=== PATIENT | male | born 1930 | race Caucasian/White ===

== ENCOUNTER 2016-06-02 12:29 | Inpatient (IN) | payer MEDICARE, OTHER ==
[2016-06-02 13:17] LABS: Hematocrit 43 % (42-52); Hemoglobin 14.1 g/dl (14.0-18.0); Mean Corpuscular HGB Conc 33 g/dl (31-36); Mean Corpuscular Hemoglobin 29 pg (27-31); Mean Corpuscular Volume 89 fL (80-94); Mean Platelet Volume 9 um3 (7.4-10.4); Red Blood Count 4.82 10^6/ul (4.0-5.4); Red Cell Distribution Width 15 % (10.5-15); White Blood Count 17.1 10^3/ul (3.5-10.8)
[2016-06-02 13:31] LABS: EGFR African American 114.3 (>60); EGFR Non-African American 88.9 (>60); Potassium 4.7 mmol/L (3.5-5.0)
--- NOTE | 2016-06-02 13:38 | RAD ---
Indication: Cough, shortness of breath, low O2 saturation. Cardiac disease. Chronic obstructive pulmonary disease. Comparison: August 23, 2015 Technique: Upright AP 1305 hours Report: Unchanged moderate elevation of the RIGHT hemidiaphragm. Lung volumes are decreased compared with the prior exam with associated bibasilar atelectasis. Given volume loss inflammatory infiltrates at the lung bases are less likely. Median sternotomy wires and mediastinal vascular clips. Mild cardiomegaly. Prominent mildly ill-defined central pulmonary vasculature likely reflecting low lung volumes. Grossly clear pleural spaces. Negative for pneumothorax. IMPRESSION: Low lung volumes for this patient compared with the prior exam with associated basilar atelectasis. No compelling evidence for pneumonia or pulmonary edema.
--- NOTE | 2016-06-02 13:49 | ED ---
Shortness of Breath - HPI Summary HPI Summary: Patient presents for delayed evaluation of fever, cough, shortness of breath. Progressively worsening for the last 2 weeks. He trialed some expectorant and cough supppressant without relief. Finally had fever and chills the last 2 days , with exertional dyspnea. Denies recent chest pain or hospitalization. Denies any specific sick contacts. - History of Current Complaint Chief Complaint: EDUpperRespComplaint Time Seen by Provider: 06/02/16 12:53 Hx Obtained From: Patient, Family/Property Preservation Specialist - , Other: - Sales Account Specialist Onset/Duration: Gradual Onset Associated Signs & Symptoms: Cough (Productive) - Allergy/Home Medications Allergies/Adverse Reactions: Allergies Allergy/AdvReac Type Severity Reaction Status Date / Time Protamine Allergy Severe Anaphylatic Verified 03/19/15 07:12 [From Protamine Sulfate Shock Lyophylized] PMH/Surg Hx/FS Hx/Imm Hx Previously Healthy: No Endocrine/Hematology History: Reports: Hx Diabetes - insulin, Other Endocrine/ Hematological Disorders - Temporal arteritis Cardiovascular History: Reports: Hx Coronary Artery Disease - CABGX3 1996, Hx Hypertension - WELL CONTROLLED, Other Cardiovascular Problems/Disorders - CARDIAC ARREST DURING CAGB, REACTION TO PROTAMINE Respiratory History: Reports: Hx Asthma, Hx Chronic Obstructive Pulmonary Disease (COPD), Hx Sleep Apnea, Other Respiratory Problems/Disorders - OCC WHEEZING History: Reports: Other Problems/Disorders - BPH Musculoskeletal History: Reports: Hx Gout, Other Musculoskeletal History - lumbar and cervical stenosis Sensory History: Reports: Hx Contacts or Glasses, Hx Hearing Aid Opthamlomology History: Reports: Hx Contacts or Glasses Neurological History: Reports: Other Neuro Impairments/Disorders - HX RIGHT TEMPORAL ARTERITIS - Surgical History Surgery Procedure, Year, and Place: 1996 CABGX3. 1998 C5-C7 LAMINECTOMY. BILAT CATARACT 2013 [facility] [place] [facility] SURGERY 1956. 1969 Sebaceous cyst removal on head Hx Anesthesia Reactions: No - CARDIAC ARREST DURING CABG, REACTION TO PROTAMINE Infectious Disease History: No Infectious Disease History: Denies: Hx Clostridium Difficile, Hx Hepatitis, Hx Human Immunodeficiency Virus (HIV), Hx of Known/Suspected MRSA, Hx Shingles, Hx Tuberculosis, Traveled Outside the [place] in Last 30 Days - Social History Alcohol Use: Daily Alcohol Amount: 2 glasses/wine at dinner Substance Use Type: Reports: None Hx Tobacco Use: Yes Smoking Status (MU): Former Smoker Length of Time of Smoking/Using Tobacco: 25 YRS Have You Smoked in the Last Year: No Review of Systems Positive: Fever, Chills Negative: Chest Pain Positive: Shortness Of Breath, Cough All Other Systems Reviewed And Are Negative: Yes Physical Exam Triage Information Reviewed: Yes Vital Signs On Initial Exam: Initial Vitals Temp Pulse Resp BP Pulse Ox 100.3 F 47 16 129/37 93 06/02/16 12:31 06/02/16 12:31 06/02/16 12:31 06/02/16 12:31 06/02/16 12:31 Vital Signs Reviewed: Yes Appearance: Positive: No Pain Distress, Well-Nourished, Ill-Appearing Skin: Positive: Warm, Skin Color Reflects Adequate Perfusion, Dry Head/Face: Positive: Normal Head/Face Inspection Eyes: Positive: Normal, EOMI, COLIN ENT: Positive: Nasal congestion Neck: Positive: Supple, Nontender Respiratory/Lung Sounds: Positive: Decreased Breath Sounds - Bibasilar decreased breath sounds. Tachypneic Cardiovascular: Positive: RRR, Pulses are Symmetrical in both Upper and Lower Extremities, Bradycardia Abdomen Description: Positive: Nontender, No Organomegaly, Soft Musculoskeletal: Positive: Normal, Strength/ROM Intact Neurological: Positive: Normal, Sensory/Motor Intact, Alert, Oriented to Person Place, Time, CN Intact II-III, Normal Gait - [place] Coma Scale Coma Scale Total: 15 Diagnostics - Vital Signs Vital Signs Temp Pulse Resp BP Pulse Ox 06/02/16 12:31 100.3 F 47 16 129/37 93 - Laboratory Lab Results: Lab Results 06/02/16 06/02/16 06/02/16 Range/Units 13:00 13:00 13:00 WBC 17.1 H (3.5-10.8) 10^3/ul RBC 4.82 (4.0-5.4) 10^6/ul Hgb 14.1 (14.0-18.0) g/dl Hct 43 (42-52) % MCV 89 (80-94) fL MCH 29 (27-31) pg MCHC 33 (31-36) g/dl RDW 15 (10.5-15) % Plt Count 140 L (150-450) 10^3/ul MPV 9 (7.4-10.4) um3 Neut % (Auto) 88.5 H (38-83) % Lymph % (Auto) 3.3 L (25-47) % Caroline % (Auto) 7.9 (1-9) % Eos % (Auto) 0.1 (0-6) % Baso % (Auto) 0.2 (0-2) % Absolute Neuts (auto) 15.2 H (1.5-7.7) 10^3/ul Absolute Lymphs (auto) 0.6 L (1.0-4.8) 10^3/ul Absolute Monos (auto) 1.4 H (0-0.8) 10^3/ul Absolute Eos (auto) 0 (0-0.6) 10^3/ul Absolute Basos (auto) 0 (0-0.2) 10^3/ul Absolute Nucleated RBC 0 10^3/ul Nucleated RBC % 0 Sodium 130 L (133-145) mmol/L Potassium 4.7 (3.5-5.0) mmol/L Chloride 97 L (101-111) mmol/L Carbon Dioxide 26 (22-32) mmol/L Anion Gap 7 (2-11) mmol/L BUN 18 (6-24) mg/dL Creatinine 0.82 (0.67-1.17) mg/dL Est GFR ( Amer) 114.3 (>60) Est GFR (Non-Af Amer) 88.9 (>60) BUN/Creatinine Ratio 22.0 H (8-20) Glucose 494 H (70-100) mg/dL Lactic Acid 3.1 H* (0.5-2.0) mmol/L Calcium 9.0 (8.6-10.3) mg/dL B-Natriuretic Peptide ( - 100) pg/mL 06/02/16 Range/Units 13:00 WBC (3.5-10.8) 10^3/ul RBC (4.0-5.4) 10^6/ul Hgb (14.0-18.0) g/dl Hct (42-52) % MCV (80-94) fL MCH (27-31) pg MCHC (31-36) g/dl RDW (10.5-15) % Plt Count (150-450) 10^3/ul MPV (7.4-10.4) um3 Neut % (Auto) (38-83) % Lymph % (Auto) (25-47) % Caroline % (Auto) (1-9) % Eos % (Auto) (0-6) % Baso % (Auto) (0-2) % Absolute Neuts (auto) (1.5-7.7) 10^3/ul Absolute Lymphs (auto) (1.0-4.8) 10^3/ul Absolute Monos (auto) (0-0.8) 10^3/ul Absolute Eos (auto) (0-0.6) 10^3/ul Absolute Basos (auto) (0-0.2) 10^3/ul Absolute Nucleated RBC 10^3/ul Nucleated RBC % Sodium (133-145) mmol/L Potassium (3.5-5.0) mmol/L Chloride (101-111) mmol/L Carbon Dioxide (22-32) mmol/L Anion Gap (2-11) mmol/L BUN (6-24) mg/dL Creatinine (0.67-1.17) mg/dL Est GFR ( Amer) (>60) Est GFR (Non-Af Amer) (>60) BUN/Creatinine Ratio (8-20) Glucose (70-100) mg/dL Lactic Acid (0.5-2.0) mmol/L Calcium (8.6-10.3) mg/dL B-Natriuretic Peptide 138 H ( - 100) pg/mL Result Diagrams: 06/02/16 13:00 06/02/16 13:00 Lab Statement: Any lab studies that have been ordered have been reviewed, and results considered in the medical decision making process. - EKG No standard instances EKG Rhythm: Sinus Bradycardia ST Segment: Normal Ectopy: None EKG Comparison: Other - Sinus Bradycardia, LBBB Course/Dx - Diagnoses Differential Diagnosis/HQI/PQRI: Positive: CHF, COPD Exacerbation, Pneumonia, Other - Primary concern for post viral bacterial pneumonia with bibasilar diminished breath sounds, systemic symptoms, leukocytosis. Tachypneic and ill appearing, but non toxic. CAP treatment and admission. Provider Diagnoses: Pneumonia, Hypoxia - Physician Notifications Discussed Care of Patient With: 13:35 Hospitalist paged for admission. Instructed by Provider To: Admit As Inpatient - Critical Care Time Critical Care Time: 30-74 min Discharge - Discharge Plan Condition: Fair Disposition: ADMITTED TO [facility] Referrals: Luis E Arellano MD [Primary Care Provider] -
[2016-06-02 14:29] LABS: Troponin I 0.01 ng/mL (<0.04)
--- NOTE | 2016-06-02 14:30 | RAD ---
INDICATION: Upper respiratory symptoms x2 weeks with blood in sputum and hypoxia. COMPARISON: CT of the chest dated March 16, 2009 TECHNIQUE: Axial source images of the chest were acquired without intravenous contrast from just above the lung apices to the base of the diaphragm. Coronal and sagittal reconstructed images were acquired. FINDINGS: Postoperative findings include sternotomy wires and likely coronary artery stents. There are densities with air bronchograms in the bilateral deep tendons lower lobes. The upper lobes are grossly clear with the exception of mild centrilobular emphysematous changes. The heart is normal in size. There is no evidence of pericardial effusion. There is no evidence of aortic aneurysm or dissection. Incidentally noted, the blood in the lumen of the aorta is hypoattenuating relative to the wall of the aorta (for example image 27 of 67). There is no readily apparent mediastinal, hilar, or axillary lymphadenopathy. Degenerative changes of the thoracic spine include loss of intervertebral disc height, multilevel disc vacuum disc phenomenon and marginal osteophyte formation. Limited views of the upper abdomen show no acute abnormalities. IMPRESSION: 1. CT findings are most compatible with bibasilar pneumonia. The location of the pneumonia, dependent and posterior bilaterally, is consistent with aspiration pneumonia. 2. Additional chronic, degenerative and iatrogenic findings as described in the body of the report.
[2016-06-02] MEDS ORDERED: Dextrose 50% Syringe 50 ML* 25 GM/50 ML SYRINGE IV PUSH PRN (15:16)
[2016-06-02] MEDS ORDERED: Benzonatate CAP* 100 MG PO PRN (15:18)
[2016-06-02] MEDS ORDERED: Albuterol/Ipratropium NEB.SOL* Albuterol 2.5 MG/Ipratropium 0.5 MG 3 ML INH PRN (15:18)
[2016-06-02] MEDS: cefTRIAXone VIAL(*) 1,000 MG in NS 0.9% 50 ML* 50 ML IVPB SCH (16:38)
[2016-06-02] MEDS: NS 0.9% 1000 ML* 1,000 ML IV SCH (16:39)
[2016-06-02] MEDS: Insulin LISPRO* 1 UNITS UNIT SUBCUT SCH (17:17)
[2016-06-02] MEDS: Azithromycin IV(*) 500 MG in NS 0.9% 250 ML* 250 ML IVPB SCH (17:21)
[2016-06-02] MEDS: predniSONE TAB* 20 MG PO SCH (20:14)
--- NOTE | 2016-06-02 21:14 | HP ---
HOSPITAL MEDICINE HISTORY AND PHYSICAL: DATE OF ADMISSION: 06/02/16 PRIMARY CARE PHYSICIAN: Dr. Arellano. ATTENDING PHYSICIAN: Paty Reilly MD* (dictation provided by Elda Stacy NP) . PRIMARY COMPLAINT: Cough. HISTORY OF PRESENT ILLNESS: Mr. Mohan is an 85-year-old male with a past medical history of diabetes, hypertension, COPD, coronary artery disease, and obstructive sleep apnea who presents today to the hospital with concern for cough. Mr. Mohan states that he has been feeling unwell for approximately 2 weeks. Early in the course of the illness, he had a runny nose and cough. He denies any fever. He was using oral decongestants and cough suppressants with some decent effect. Last night, he was having some difficulty lying flat to sleep. He felt more short of breath. He noticed blood in his sputum. He was feeling "loggy." He awoke at 5 a.m. and was coughing so much that he could not get comfortable. He could not lie down due to the coughing. He felt significant chills. He went on to Dr. Lai's office and she suspected that perhaps he had pneumonia and therefore, had him come in to the emergency room for evaluation. Mr. Mohan denies other complaint including chest pain. He has been eating and drinking normally prior to getting this ill last night. His bowels have been moving regularly. He has had no problems with urination. In the emergency room, Mr. Mohan had a mild fever to 100.3. His white blood cell count is elevated to 17.1. His lactic acid is elevated to 3.1. Flu swab is negative. His chest x-ray did not appear to show pneumonia, but he went on for a CT of the chest, which showed the following: "CT findings are most compatible with bibasilar pneumonia. The location of the pneumonia dependent posterior bilaterally is consistent with aspiration pneumonia." Based on Mr. Mohan's presentation with pneumonia, Hospital Medicine was called regarding admission. PAST MEDICAL HISTORY: 1. Type 2 diabetes, insulin dependent. 2. History of TURP. 3. History of hypertension. 4. COPD. 5. Coronary artery disease with CABG. 6. History of spinal stenosis with cervical surgery, 1998. 7. Obstructive sleep apnea, on BiPAP. MEDICATIONS: 1. Atenolol 50 mg p.o. q.p.m. 2. Glipizide 5 mg in the a.m. and 10 mg in the p.m. 3. Hydrochlorothiazide 12.5 mg p.o. q.a.m. 4. Lantus insulin 20 units subcutaneously q.a.m. 5. Metformin 1000 mg p.o. b.i.d. 6. Pravastatin 20 mg p.o. q.p.m. 7. Symbicort 80/4.5 two puffs inhaled b.i.d. 8. Aspirin 81 mg p.o. daily. 9. Amlodipine 10 mg p.o. q.p.m. ALLERGIES: PROTAMINE SULFATE. FAMILY HISTORY: No history of early heart disease in the family. SOCIAL HISTORY: The patient quit smoking in 1971. He drinks 2 glasses of wine occasionally at night. He denies any drug use. He states his is the healthcare proxy. REVIEW OF SYSTEMS: A 14-point review of systems was completed with Mr. Mohan and all those note mentioned above are negative. PHYSICAL EXAMINATION GENERAL: Mr. Mohan is sitting up in the bed. He is in no acute distress. He is calm and cooperative to my examination. VITAL SIGNS: Temperature 98.3, pulse rate 46, respiratory rate 22, O2 saturation 94% on 2 L, blood pressure 151/42. LUNGS: With wheezing bilaterally, but no rhonchi appreciated. HEART: S1, S2. No murmur, rub, or gallop and regular. ABDOMEN: Soft, nontender with bowel sounds positive x4. EXTREMITIES: No cyanosis or edema. NEUROLOGIC: He is alert. He is oriented x3. He moves all extremities equally. There is no facial asymmetry or focal weakness. Extraocular movements are intact. SKIN: Intact. LABORATORY DATA AND DIAGNOSTIC STUDIES: WBC 17.1, hemoglobin 14.1, hematocrit 43, platelet count 140. Sodium 130, potassium 4.7, chloride 97, serum bicarbonate 26, BUN 18, creatinine 0.82, glucose 494, lactic acid 3.1, BNP 138. Flu swab is negative. CT chest is as read above. Chest x-ray originally was read as follows: Low lung volumes for this patient compared to the prior exam with associated bibasilar atelectasis. EKG: Sinus bradycardia with what appears to be a new left bundle branch block with last comparison EKG from 2008. ASSESSMENT AND PLAN: Mr. Mohan is an 85-year-old male with a past medical history of insulin-dependent diabetes, chronic obstructive pulmonary disease, hypertension, coronary artery disease, obstructive sleep apnea who presents today to the hospital with concern for cough and diagnosis of pneumonia. Our plans are for inpatient admission as I expect the length of stay to be greater than 2 days for the followin. Community-acquired pneumonia: Plan to treat the patient with ceftriaxone and azithromycin. I have added on a urine strep and Legionella antigens. His flu swab is negative. His blood cultures have been drawn. Plan to recheck white blood cell count in the morning. His lactic acid is 3.1, that will be rechecked now. 2. Sinus bradycardia with left bundle branch block: Mr. Mohan states that his heart rate normally runs about 60, I noted today in the emergency room, his heart rate is running about 46 to 50. He also had what appears to be a new left bundle branch block. This has been discussed with Dr. Arellano who is his primary care physician and plans are for the office to look for a more recent EKG to determine if this is actually new. Mr. Mohan denies any chest pain. I do not think this represents an acute coronary syndrome. I will recheck a troponin, the first one was 0.01. In addition, Mr. Mohan is on atenolol at home and that will be held. 3. Hypertension: Plan to hold atenolol and hydrochlorothiazide. The patient will continue on his home amlodipine while he is in increased risk for complications while being treated for pneumonia. 4. Obstructive sleep apnea: Continue home BiPAP. The will bring it from home. 5. Chronic obstructive pulmonary disease: The patient is wheezing. Plan to add prednisone at 40 mg starting now. I think that could continue along with dual nebulizer treatments via quick taper. 6. DVT prophylaxis with heparin subcu. 7. Disposition to telemetry floor based on new left bundle branch block and bradycardia. 8. Code status is full code. TIME SPENT: Approximately 60 minutes were spent on the H and P of this patient , more than half time spent with the patient at the bedside reviewing the events leading up to this hospitalization, performing the physical examination, and reviewing my plan of care. ELDA STACY NP CC: Dr. Arellano * [id number]/[facility] #: [id number] JOYCE
[2016-06-02] MEDS: Heparin VIAL(*) 5000 UNITS/ML VIAL (FIVE THOUSAND) SUBCUT SCH (21:33)
[2016-06-03] MEDS: NS 0.9% 1000 ML* 1,000 ML IV SCH (02:54)
[2016-06-03 05:05] LABS: Hematocrit 39 % (42-52); Hemoglobin 12.8 g/dl (14.0-18.0); Mean Corpuscular HGB Conc 33 g/dl (31-36); Mean Corpuscular Hemoglobin 29 pg (27-31); Mean Corpuscular Volume 89 fL (80-94); Mean Platelet Volume 9 um3 (7.4-10.4); Red Cell Distribution Width 15 % (10.5-15); White Blood Count 13.8 10^3/ul (3.5-10.8)
[2016-06-03 05:09] LABS: Add Diff/Slide Review? Slide Review Added; Comments Flag Yes
[2016-06-03 05:16] LABS: Calcium 8.9 mg/dL (8.6-10.3); EGFR African American 137.2 (>60); EGFR Non-African American 106.7 (>60); Potassium 4.4 mmol/L (3.5-5.0)
[2016-06-03] MEDS: Heparin VIAL(*) 5000 UNITS/ML VIAL (FIVE THOUSAND) SUBCUT SCH ×3 (05:49→22:19)
[2016-06-03] MEDS: GuaiFENesin DM* 5 ML UDC PO PRN ×3 (05:53→22:20)
[2016-06-03] MEDS ORDERED: Dextrose 50% Syringe 50 ML* 25 GM/50 ML SYRINGE IV PUSH PRN (08:28)
--- NOTE | 2016-06-03 08:39 | PN ---
Subjective - Subjective Reason for Note: Progress Note History: I reviewed Vladimir Ellis's presentation with the patient and also from the H and P provided by Elda Stacy NP. He has had a cough for 2 weeks preceded by a sore throat. He thought it was improving, but over the weekend it became productive. Yesterday he developed shortness of breath - marked orthopnea. He also had 1 episode of hemoptysis - bright red blood He has had no chest pain, palpitations, edema. Today he has a good appetite. He is hyperglycemic. He has no nausea/vomiting/ diarrhea. He continues to have a productive cough bringing up yellow sputum. He is in no pain Active Problems: Active Problems Basal pneumonia of both lungs (Acute) J18.9 Bradycardia (Acute) R00.1 COPD (chronic obstructive pulmonary disease) (Acute) J44.9 Expiratory wheezing (Acute) R06.2 Type 2 diabetes mellitus, uncontrolled (Acute) E11.65 Coronary atherosclerosis (Chronic) I25.10 Essential hypertension (Chronic) I10 Hx of cervical spine surgery (Chronic) Z98.890 Hypercholesterolemia (Chronic) E78.00 Left bundle branch block (LBBB) (Chronic) I44.7 S/P CABG (coronary artery bypass graft) (Chronic) Z95.1 Sleep apnea (Chronic) G47.30 Spinal stenosis in cervical region (Chronic) M48.02 Status post transurethral resection of prostate (Chronic 04/22/15) Z90.79 Current Medications: Current Medications Albuterol/Ipratropium (Duoneb Neb.Kerry*) 1 neb INH Q4H PRN PRN Reason: SOB/WHEEZING Last Admin: 06/02/16 21:07 Dose: 1 neb Amlodipine Besylate (Norvasc Tab*) 10 mg PO QPM JOSE LUIS Aspirin (Aspirin Ec Low Dose*) 81 mg PO DAILY JOSE LUIS Benzonatate (Tessalon Cap*) 100 mg PO BID PRN PRN Reason: COUGH Last Admin: 06/02/16 20:14 Dose: 100 mg Dextrose (D50w Syringe 50 Ml*) 12.5 gm IV PUSH .FOR FS < 60 - SS PRN PRN Reason: FS < 60 Dextrose (D50w Syringe 50 Ml*) 12.5 gm IV PUSH .FOR FS < 60 - SS PRN PRN Reason: FS < 60 Guaifenesin/Dextromethorphan (Robitussin Dm*) 10 ml PO Q6H PRN PRN Reason: COUGH Last Admin: 06/03/16 05:53 Dose: 10 ml Heparin Sodium (Porcine) (Heparin Vial(*)) 5,000 units SUBCUT Q8HR [facility] Last Admin: 06/03/16 05:49 Dose: 5,000 units Ceftriaxone Sodium 1,000 mg/ (Sodium Chloride) 50 mls @ 200 mls/hr IVPB Q24H [facility] Last Admin: 06/02/16 16:38 Dose: 200 mls/hr Azithromycin 500 mg/ Sodium (Chloride) 250 mls @ 250 mls/hr IVPB Q24H [facility] Last Admin: 06/02/16 17:21 Dose: 250 mls/hr Insulin Glargine (Lantus(*)) 20 units SUBCUT Q12H [facility] Insulin Human Lispro (Humalog*) 0 units SUBCUT AC [facility] PRN Reason: Protocol Last Admin: 06/02/16 17:17 Dose: 8 units Insulin Human Lispro (Humalog*) 0 units SUBCUT ACHS [facility] PRN Reason: Protocol Prednisone (Deltasone Tab*) 40 mg PO DAILY [facility] Last Admin: 06/02/16 20:14 Dose: 40 mg - Review of Systems Constitutional Symptoms: No: Fever, Night Sweats Dermatology: Rash: No Pulmonary: Positive: Cough, Sputum, Wheezing, Shortness of Breath, COPD, Other - sleep apnea with BIPAP Negative: Hemoptysis, Respiratory Distress Cardiology: Positive: Shortness of Breath Negative: Chest Pain, Palpitations, Swelling of Ankles Gastroenterology: Negative: Abdominal Pain, Nausea, Vomiting, Change in Bowel Habits Home Medications: Home Medications Medication Instructions Recorded Confirmed Type Atenolol 50 mg PO QPM 07/16/12 06/02/16 History Glipizide 5 mg PO QAM 07/16/12 06/02/16 History Hydrochlorothiazide TAB* 12.5 mg PO QAM 07/16/12 06/02/16 History Insulin Glargine [Lantus] 20 units SUBCUT QAM 07/16/12 06/02/16 History Metformin HCl 1,000 mg PO BID 07/16/12 06/02/16 History amLODIPine TAB* [Norvasc TAB*] 10 mg PO QPM 07/16/12 06/02/16 History Glipizide 10 mg PO QPM 03/12/15 06/02/16 History Pravastatin Sodium [Pravachol] 20 mg PO QPM 03/12/15 06/02/16 History Symbicort 80/4.5 (NF) 2 inh INH BID 03/19/15 06/02/16 History Aspirin EC Low Dose* [Ecotrin EC 81 mg PO DAILY 06/02/16 06/02/16 History Low Dose*] Allergies: Allergies Allergy/AdvReac Type Severity Reaction Status Date / Time Protamine Allergy Severe Anaphylatic Verified 03/19/15 07:12 [From Protamine Sulfate Shock Lyophylized] Objective - Vital Signs Vital Signs: Vital Signs 06/02/16 06/02/16 06/02/16 17:25 19:39 19:46 Temperature 99.7 F Pulse Rate 48 Respiratory 22 18 18 Rate Blood Pressure 134/35 (mmHg) O2 Sat by Pulse 95 Oximetry 06/02/16 06/02/16 06/03/16 21:08 23:20 01:20 Temperature 98.4 F Pulse Rate 44 41 Respiratory 20 16 Rate Blood Pressure 120/36 (mmHg) O2 Sat by Pulse 93 94 93 Oximetry 06/03/16 03:11 Temperature 98.1 F Pulse Rate 39 Respiratory 20 Rate Blood Pressure 122/45 (mmHg) O2 Sat by Pulse 93 Oximetry - Intake and Output Intake and Output: Intake & Output 05/31/16 06/01/16 06/02/16 06/03/16 11:59 11:59 11:59 11:59 Intake Total 1640 Output Total 700 Balance 940 Weight 191 lb 9.6 oz Intake: IV Fluids 1580 ABX - AZITHROMYCIN 250 NS 1330 IVPB 60 Oral 0 Output: Urine 700 Other: Estimated Void Medium # Bowel Movements 0 # Voids 1 ADLs: Meal Record Start: 06/02/16 16: 41 Freq: DAILY@0900,1400,1800 Status: Active Created 06/02/16 16:41 System (Rec: 06/02/16 16:41 System [id number]) Intake and Output Start: 06/02/16 16: 41 Freq: DAILY@0600,1400,2200 Status: Active Created 06/02/16 16:41 System (Rec: 06/02/16 16:41 System [id number]) Document 06/02/16 16:42 [id number] (Rec: 06/02/16 16:42 [id number]) Document 06/03/16 06:00 [id number] (Rec: 06/03/16 07:15 [id number]) - Physical Exam General: No Cyanosis, No Jaundice, No Lymphadenopathy, No Clubbing Eye Exam: bilateral: EOMI Skin: Normal: Rash, Lesions Lungs and Chest: Yes: Chest Expansion Full, Chest Expansion Symetrica, Crackles - scattered crackles at bases, Wheezes, Respiratory Distress - tachypnea. No: Percussion Note Resonant - dull at bases, Vessicular Breath Sounds - diminished at bases, Use of Accessory Muscles Heart Rate and Rhythm: Bradycardia JVP: Not Elevated Additional Cardiovascular: Yes: Normal Heart Sounds. No: Heart Murmur, Pedal Edema Abdominal Exam: Yes: Soft, Bowel Sounds Present. No: Distention, Abdominal Mass , Hepatomegaly, Splenomegaly, Abdominal Tenderness - Extremities Cranial Nerves II-XII Intact: Yes Limbs: Normal Power - Neuro Orientation: A/O x3 Speech: Normal Results - Results Lab Results: Laboratory Results - last 24 hr 06/02/16 06/02/16 06/02/16 16:56 19:51 19:51 WBC RBC Hgb Hct MCV MCH MCHC RDW Plt Count MPV Neut % (Auto) Lymph % (Auto) [place] % (Auto) Eos % (Auto) Baso % (Auto) Absolute Neuts (auto) Absolute Lymphs (auto) Absolute Monos (auto) Absolute Eos (auto) Absolute Basos (auto) Absolute Nucleated RBC Nucleated RBC % Sodium Potassium Chloride Carbon Dioxide Anion Gap BUN Creatinine Est GFR ( Amer) Est GFR (Non-Af Amer) BUN/Creatinine Ratio Glucose POC Glucose (mg/dL) 335 H Lactic Acid 2.2 H* Calcium Troponin I 0.02 06/03/16 06/03/16 06/03/16 04:14 04:14 07:54 WBC 13.8 H RBC 4.40 Hgb 12.8 L Hct 39 L MCV 89 MCH 29 MCHC 33 RDW 15 Plt Count 109 L MPV 9 Neut % (Auto) 91.7 H Lymph % (Auto) 3.5 L [place] % (Auto) 4.0 Eos % (Auto) 0 Baso % (Auto) 0.8 Absolute Neuts (auto) 12.7 H Absolute Lymphs (auto) 0.5 L Absolute Monos (auto) 0.6 Absolute Eos (auto) 0 Absolute Basos (auto) 0.1 Absolute Nucleated RBC 0 Nucleated RBC % 0 Sodium 134 Potassium 4.4 Chloride 103 Carbon Dioxide 30 Anion Gap 1 L BUN 14 Creatinine 0.70 Est GFR ( Amer) 137.2 Est GFR (Non-Af Amer) 106.7 BUN/Creatinine Ratio 20.0 Glucose 304 H POC Glucose (mg/dL) 309 H Lactic Acid Calcium 8.9 Troponin I Radiology Results: Patient Name: VLADIMIR ELLIS Medical Record#: [id number] Ordering Physician: Chevy Barrera MD Acct.#: [id number] : 1930 Age: 85 Sex: M Location: EMERGENCY DEPARTMENT Exam Date: 06/02/16 1342 ADM Status: REG ER Order Information: CT CHEST W/O Accession Number: [id number] CPT: 24618 INDICATION: Upper respiratory symptoms x2 weeks with blood in sputum and hypoxia. COMPARISON: CT of the chest dated March 16, 2009 TECHNIQUE: Axial source images of the chest were acquired without intravenous contrast from just above the lung apices to the base of the diaphragm. Coronal and sagittal reconstructed images were acquired. FINDINGS: Postoperative findings include sternotomy wires and likely coronary artery stents. There are densities with air bronchograms in the bilateral deep tendons lower lobes. The upper lobes are grossly clear with the exception of mild centrilobular emphysematous changes. The heart is normal in size. There is no evidence of pericardial effusion. There is no evidence of aortic aneurysm or dissection. Incidentally noted, the blood in the lumen of the aorta is hypoattenuating relative to the wall of the aorta (for example image 27 of 67). There is no readily apparent mediastinal, hilar, or axillary lymphadenopathy. Degenerative changes of the thoracic spine include loss of intervertebral disc height, multilevel disc vacuum disc phenomenon and marginal osteophyte formation. Limited views of the upper abdomen show no acute abnormalities. IMPRESSION: 1. CT findings are most compatible with bibasilar pneumonia. The location of the pneumonia, dependent and posterior bilaterally, is consistent with aspiration pneumonia. 2. Additional chronic, degenerative and iatrogenic findings as described in the body of the report. <Electronically signed by Abdias Negrete MD in OV> 06/02/161426 Dictated By: Abdias Negrete MD Dictated Date/Time: 06/02/16 142 Transcribed Date/Time: 06/02/16 1408 Copy to: CC:Luis E Arellano MD; Chevy Barrera MD Imaging - [facility] Imaging [facility] 1 of 2 Patient Name: VLADIMIR ELLIS Medical Record#: [id number] Ordering Physician: Chevy Barrera MD Acct.#: [id number] : 1930 Age: 85 Sex: M Location: EMERGENCY DEPARTMENT Exam Date: 06/02/16 1254 ADM Status: REG ER Order Information: CHEST AP PORTABLE Accession Number: [id number] CPT: 56676 Indication: Cough, shortness of breath, low O2 saturation. Cardiac disease. Chronic obstructive pulmonary disease. Comparison: August 23, 2015 Technique: Upright AP 1305 hours Report: Unchanged moderate elevation of the RIGHT hemidiaphragm. Lung volumes are decreased compared with the prior exam with associated bibasilar atelectasis. Given volume loss inflammatory infiltrates at the lung bases are less likely. Median sternotomy wires and mediastinal vascular clips. Mild cardiomegaly. Prominent mildly ill-defined central pulmonary vasculature likely reflecting low lung volumes. Grossly clear pleural spaces. Negative for pneumothorax. IMPRESSION: Low lung volumes for this patient compared with the prior exam with associated basilar atelectasis. No compelling evidence for pneumonia or pulmonary edema. <Electronically signed by Jeromy Ruggiero MD in [place]> 06/02/16 133 Dictated By: Jeromy Ruggiero MD Dictated Date/Time: 06/02/16 1334 Transcribed Date/Time: 06/02/16 1331 Copy to: CC:Luis E Arellano MD; Chevy Barrera MD Imaging - [facility] [id number] [place] [id number] ph [phone]) ph ([phone]) ph ([phone]) 1 of 1 Assessment - Problem List Assessment: Patient Problems Basal pneumonia of both lungs (Acute) Bradycardia (Acute) COPD (chronic obstructive pulmonary disease) (Acute) Expiratory wheezing (Acute) Type 2 diabetes mellitus, uncontrolled (Acute) Coronary atherosclerosis (Chronic) Essential hypertension (Chronic) Hx of cervical spine surgery (Chronic) Hypercholesterolemia (Chronic) Left bundle branch block (LBBB) (Chronic) S/P CABG (coronary artery bypass graft) (Chronic) Sleep apnea (Chronic) Spinal stenosis in cervical region (Chronic) Status post transurethral resection of prostate (Chronic 04/22/15) Plan: Basal pneumonia of both lungs (Acute) He has a leukocytosis and neutrophilia. I will check his procalcitonin/CRP. I will also look at his urine pneumococcal antigen. He is on appropriate treatment with ceftriaxone/azithromycin for community acquired pneumonia. His BNP is not especially elevated, but I have stopped his IVF as I don't want volume overload Bradycardia (Acute) Left bundle branch block (LBBB) (Chronic) Telemetry reveals some short pauses - he has had no symptoms. He also has LBBB - this has not been previously observied COPD (chronic obstructive pulmonary disease) (Acute)Expiratory wheezing (Acute) This is exacerbated - he is receiving albuterol Type 2 diabetes mellitus, uncontrolled (Acute) He usually is taking oral medication. I will increase the insulin coverage - basal bolus regimen Coronary atherosclerosis (Chronic) inactive Essential hypertension (Chronic) secondary diagnosis Hx of cervical spine surgery (Chronic) secondary diagnosis Hypercholesterolemia (Chronic) secondary diagnosis S/P CABG (coronary artery bypass graft) (Chronic) secondary diagnosis Sleep apnea (Chronic) uses BIPAP Spinal stenosis in cervical region (Chronic) secondary diagnosis Status post transurethral resection of prostate (Chronic 04/22/15) I discussed the above with the patient and he agrees with the management plan. I also spoke with his Brandie Lawton.
[2016-06-03] MEDS ORDERED: Insulin GLARGINE(*) 1 UNITS UNIT SUBCUT SCH ×2 (09:00)
[2016-06-03] MEDS: predniSONE TAB* 20 MG PO SCH (09:25)
[2016-06-03] MEDS: Insulin LISPRO* 1 UNITS UNIT SUBCUT SCH ×5 (09:25→18:38)
[2016-06-03] MEDS: Aspirin EC Low Dose* 81 MG TAB.EC PO SCH (09:25)
[2016-06-03] MEDS: Insulin GLARGINE(*) 1 UNITS UNIT SUBCUT SCH ×2 (09:26→22:19)
[2016-06-03] MEDS: cefTRIAXone VIAL(*) 1,000 MG in NS 0.9% 50 ML* 50 ML IVPB SCH (16:36)
[2016-06-03] MEDS: Azithromycin IV(*) 500 MG in NS 0.9% 250 ML* 250 ML IVPB SCH (17:35)
--- NOTE | 2016-06-03 17:39 | PN ---
Progress Note - Progress Note Note: Pulm consult f/u note 06/03/16. Pt seen and examined at bedside. Pt reports slight improvement in breathing. reprots feeling tired. O2 requirements are improved. PMHx/PSHx/All/Social Hx/FHx are reviewed and unchanged from admission Active Medications Generic Name Dose Route Start Last Admin Trade Name Freq PRN Reason Stop Dose Admin Albuterol/Ipratropium 1 neb 06/02/16 15:18 06/02/16 21:07 Duoneb Neb.Kerry* INH 1 neb Q4H PRN Administration SOB/WHEEZING Amlodipine Besylate 10 mg 06/03/16 18:00 Norvasc Tab* PO QPM JOSE LUIS Aspirin 81 mg 06/03/16 09:00 06/03/16 09:25 Aspirin Ec Low Dose* PO 81 mg DAILY JOSE LUIS Administration Benzonatate 100 mg 06/02/16 15:18 06/02/16 20:14 Tessalon Cap* PO 100 mg BID PRN Administration COUGH Dextrose 12.5 gm 06/02/16 15:16 D50w Syringe 50 Ml* IV PUSH .FOR FS < 60 - SS PRN FS < 60 Dextrose 12.5 gm 06/03/16 08:28 D50w Syringe 50 Ml* IV PUSH .FOR FS < 60 - SS PRN FS < 60 Guaifenesin/Dextromethorphan 10 ml 06/02/16 15:18 06/03/16 12:00 Robitussin Dm* PO 10 ml Q6H PRN Administration COUGH Heparin Sodium (Porcine) 5,000 units 06/02/16 22:00 06/03/16 13:28 Heparin Vial(*) SUBCUT 5,000 units Q8HR JOSE LUIS Administration Ceftriaxone Sodium 1,000 mg/ 50 mls @ 200 mls/hr 06/02/16 16:30 06/03/16 16: 36 Sodium Chloride IVPB 200 mls/hr Q24H JOSE LUIS Administration Azithromycin 500 mg/ Sodium 250 mls @ 250 mls/hr 06/02/16 17:00 06/02/16 17: 21 Chloride IVPB 250 mls/hr Q24H JOSE LUIS Administration Insulin Glargine 15 units 06/03/16 09:00 06/03/16 09:26 Lantus(*) SUBCUT 15 units Q12H JOSE LUIS Administration Insulin Human Lispro 0 units 06/02/16 16:30 06/03/16 13:26 Humalog* SUBCUT 10 units AC JOSE LUIS Administration Protocol Insulin Human Lispro 0 units 06/03/16 11:30 06/03/16 13:27 Humalog* SUBCUT 5 units ACHS [facility] Administration Protocol Prednisone 40 mg 06/02/16 19:00 06/03/16 09:25 Deltasone Tab* PO 40 mg DAILY JOSE LUIS Administration Vital Signs Temp Pulse Resp BP Pulse Ox 98.1 F 43 17 129/45 97 06/03/16 15:29 06/03/16 15:29 06/03/16 15:29 06/03/16 15:29 06/03/16 15:29 Gen: Pt in NAD HEENT: No Scleral Icterus, Mucous Membranes Moist Respiratory: Symmetrical Chest Expansion and Respiratory Effort, scattered wheeze and rhonchi present Cardiovascular: NL Sounds; No Murmurs; No JVD, RRR Abdominal: NL Sounds; No Tenderness; No Distention Extremities: No Clubbing, Cyanosis Skin: No Rash or Ulcers, No Nodules or Sclerosis Neurological: Alert and Oriented x 3, no focal defecits Laboratory Results - last 24 hr 06/02/16 06/02/16 06/02/16 13:00 19:51 19:51 WBC RBC Hgb Hct MCV MCH MCHC RDW Plt Count MPV Neut % (Auto) Lymph % (Auto) [place] % (Auto) Eos % (Auto) Baso % (Auto) Absolute Neuts (auto) Absolute Lymphs (auto) Absolute Monos (auto) Absolute Eos (auto) Absolute Basos (auto) Absolute Nucleated RBC Nucleated RBC % Sodium Potassium Chloride Carbon Dioxide Anion Gap BUN Creatinine Est GFR ( Amer) Est GFR (Non-Af Amer) BUN/Creatinine Ratio Glucose POC Glucose (mg/dL) Hemoglobin A1c 8.4 H Lactic Acid 2.2 H* Calcium Troponin I 0.02 06/03/16 06/03/16 06/03/16 04:14 04:14 07:54 WBC 13.8 H RBC 4.40 Hgb 12.8 L Hct 39 L MCV 89 MCH 29 MCHC 33 RDW 15 Plt Count 109 L MPV 9 Neut % (Auto) 91.7 H Lymph % (Auto) 3.5 L [place] % (Auto) 4.0 Eos % (Auto) 0 Baso % (Auto) 0.8 Absolute Neuts (auto) 12.7 H Absolute Lymphs (auto) 0.5 L Absolute Monos (auto) 0.6 Absolute Eos (auto) 0 Absolute Basos (auto) 0.1 Absolute Nucleated RBC 0 Nucleated RBC % 0 Sodium 134 Potassium 4.4 Chloride 103 Carbon Dioxide 30 Anion Gap 1 L BUN 14 Creatinine 0.70 Est GFR ( Amer) 137.2 Est GFR (Non-Af Amer) 106.7 BUN/Creatinine Ratio 20.0 Glucose 304 H POC Glucose (mg/dL) 309 H Hemoglobin A1c Lactic Acid Calcium 8.9 Troponin I 06/03/16 06/03/16 06/03/16 08:10 11:35 16:45 WBC RBC Hgb Hct MCV MCH MCHC RDW Plt Count MPV Neut % (Auto) Lymph % (Auto) [place] % (Auto) Eos % (Auto) Baso % (Auto) Absolute Neuts (auto) Absolute Lymphs (auto) Absolute Monos (auto) Absolute Eos (auto) Absolute Basos (auto) Absolute Nucleated RBC Nucleated RBC % Sodium Potassium Chloride Carbon Dioxide Anion Gap BUN Creatinine Est GFR ( Amer) Est GFR (Non-Af Amer) BUN/Creatinine Ratio Glucose POC Glucose (mg/dL) 379 H 193 H Hemoglobin A1c Lactic Acid 0.[address] chest was personally reviewed by me: B/l lower lobe dense consolidations R>L , no endobronchial lesions I/R: 85 y o m with h/o COPD, 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 Pt presented with non-resolving URI sx to clinic yesterday. Pt had significant wheeze, crackles on exam with evidence of hypoxia and was sent to ED for further evaluation. Pt had CT chest in ED which showed b/ l PNA. Pt also had signs of sepsis which are improving.He is on abx for coverage of CAP. Acute hypoxic resp failure secondary to PNA CAP Acute COPD exacerbation c/w abx, day#2/ c/w O2 supplementation Sputum cx negative to date No further episodes of hemoptysis c/w bronchodilators, prednisone Sugars being closely monitored
[2016-06-03] MEDS: amLODIPine TAB* 5 MG PO SCH (18:39)
[2016-06-04] MEDS: Heparin VIAL(*) 5000 UNITS/ML VIAL (FIVE THOUSAND) SUBCUT SCH ×3 (05:33→22:20)
[2016-06-04] MEDS: Acetaminophen TAB* 325 MG PO PRN ×2 (05:50→11:50)
[2016-06-04 05:57] LABS: Hematocrit 42 % (42-52); Hemoglobin 13.7 g/dl (14.0-18.0); Mean Corpuscular HGB Conc 33 g/dl (31-36); Mean Corpuscular Hemoglobin 29 pg (27-31); Mean Corpuscular Volume 88 fL (80-94); Mean Platelet Volume 8 um3 (7.4-10.4); Red Blood Count 4.77 10^6/ul (4.0-5.4); Red Cell Distribution Width 15 % (10.5-15); White Blood Count 12.5 10^3/ul (3.5-10.8)
[2016-06-04 06:14] LABS: Albumin 3.9 g/dL (3.2-5.2); BUN/Creatinine Ratio 33.3 (8-20); C Reactive Protein 130.63 mg/L (< 5.00); Calcium 9.4 mg/dL (8.6-10.3); Direct Bilirubin 0.1 mg/dL (0.03-0.18); EGFR African American 154.9 (>60); EGFR Non-African American 120.5 (>60); Globulin 3.2 g/dL (2-4); Indirect Bilirubin 0.4 mg/dL (0.3-1.0); Total Bilirubin 0.5 mg/dL (0.2-1.0); Total Protein 7.1 g/dL (6.4-8.9)
[2016-06-04] MEDS: Aspirin EC Low Dose* 81 MG TAB.EC PO SCH (08:03)
[2016-06-04] MEDS: predniSONE TAB* 20 MG PO SCH (08:06)
--- NOTE | 2016-06-04 08:08 | PN ---
Subjective - Subjective Reason for Note: Progress Note History: He managed to walk around the medical bender x 4 yesterday - felt a little short of breath by the end. He has a productive cough and some wheezing. He has no chest pain or palpitations. He has had some 2 second pauses on his telemetry and some ventricular ectopy/bigeminy. He has a good appetite and no diarrhea. His POC glucose readings remain high Active Problems: Active Problems Basal pneumonia of both lungs (Acute) J18.9 Bradycardia (Acute) R00.1 COPD (chronic obstructive pulmonary disease) (Acute) J44.9 Expiratory wheezing (Acute) R06.2 Type 2 diabetes mellitus, uncontrolled (Acute) E11.65 Coronary atherosclerosis (Chronic) I25.10 Essential hypertension (Chronic) I10 Hx of cervical spine surgery (Chronic) Z98.890 Hypercholesterolemia (Chronic) E78.00 Left bundle branch block (LBBB) (Chronic) I44.7 S/P CABG (coronary artery bypass graft) (Chronic) Z95.1 Sleep apnea (Chronic) G47.30 Spinal stenosis in cervical region (Chronic) M48.02 Status post transurethral resection of prostate (Chronic 04/22/15) Z90.79 Current Medications: Current Medications Acetaminophen (Tylenol Tab*) 650 mg PO Q6H PRN PRN Reason: FEVER/PAIN Last Admin: 06/04/16 05:50 Dose: 650 mg Albuterol/Ipratropium (Duoneb Neb.Kerry*) 1 neb INH Q4H PRN PRN Reason: SOB/WHEEZING Last Admin: 06/02/16 21:07 Dose: 1 neb Amlodipine Besylate (Norvasc Tab*) 10 mg PO QPM JOSE LUIS Last Admin: 06/03/16 18:39 Dose: 10 mg Aspirin (Aspirin Ec Low Dose*) 81 mg PO DAILY JOSE LUIS Last Admin: 06/03/16 09:25 Dose: 81 mg Benzonatate (Tessalon Cap*) 100 mg PO BID PRN PRN Reason: COUGH Last Admin: 06/02/16 20:14 Dose: 100 mg Dextrose (D50w Syringe 50 Ml*) 12.5 gm IV PUSH .FOR FS < 60 - SS PRN PRN Reason: FS < 60 Dextrose (D50w Syringe 50 Ml*) 12.5 gm IV PUSH .FOR FS < 60 - SS PRN PRN Reason: FS < 60 Guaifenesin/Dextromethorphan (Robitussin Dm*) 10 ml PO Q6H PRN PRN Reason: COUGH Last Admin: 06/03/16 22:20 Dose: 10 ml Heparin Sodium (Porcine) (Heparin Vial(*)) 5,000 units SUBCUT Q8HR [facility] Last Admin: 06/04/16 05:33 Dose: Not Given Ceftriaxone Sodium 1,000 mg/ (Sodium Chloride) 50 mls @ 200 mls/hr IVPB Q24H JOSE LUIS Last Admin: 06/03/16 16:36 Dose: 200 mls/hr Azithromycin 500 mg/ Sodium (Chloride) 250 mls @ 250 mls/hr IVPB Q24H JOSE LUIS Last Admin: 06/03/16 17:35 Dose: 250 mls/hr Insulin Glargine (Lantus(*)) 15 units SUBCUT Q12H [facility] Last Admin: 06/03/16 22:19 Dose: 15 units Insulin Human Lispro (Humalog*) 0 units SUBCUT AC JOSE LUIS PRN Reason: Protocol Last Admin: 06/03/16 18:37 Dose: 2 units Insulin Human Lispro (Humalog*) 0 units SUBCUT AC JOSE LUIS PRN Reason: Protocol Prednisone (Deltasone Tab*) 40 mg PO DAILY [facility] Last Admin: 06/03/16 09:25 Dose: 40 mg Home Medications: Home Medications Medication Instructions Recorded Confirmed Type Atenolol 50 mg PO QPM 07/16/12 06/02/16 History Glipizide 5 mg PO QAM 07/16/12 06/02/16 History Hydrochlorothiazide TAB* 12.5 mg PO QAM 07/16/12 06/02/16 History Insulin Glargine [Lantus] 20 units SUBCUT QAM 07/16/12 06/02/16 History Metformin HCl 1,000 mg PO BID 07/16/12 06/02/16 History amLODIPine TAB* [Norvasc TAB*] 10 mg PO QPM 07/16/12 06/02/16 History Glipizide 10 mg PO QPM 03/12/15 06/02/16 History Pravastatin Sodium [Pravachol] 20 mg PO QPM 03/12/15 06/02/16 History Symbicort 80/4.5 (NF) 2 inh INH BID 03/19/15 06/02/16 History Aspirin EC Low Dose* [Ecotrin EC 81 mg PO DAILY 06/02/16 06/02/16 History Low Dose*] Allergies: Allergies Allergy/AdvReac Type Severity Reaction Status Date / Time Protamine Allergy Severe Anaphylatic Verified 03/19/15 07:12 [From Protamine Sulfate Shock Lyophylized] Objective - Vital Signs Vital Signs: Vital Signs 06/03/16 06/03/16 06/03/16 09:36 10:58 15:29 Temperature 98.7 F 98.1 F Pulse Rate 71 43 Respiratory 20 20 17 Rate Blood Pressure 140/60 129/45 (mmHg) O2 Sat by Pulse 96 97 Oximetry 06/03/16 06/03/16 06/03/16 17:40 19:55 20:00 Temperature 97.9 F Pulse Rate 42 44 42 Respiratory 16 18 20 Rate Blood Pressure 149/48 (mmHg) O2 Sat by Pulse 96 96 96 Oximetry 06/03/16 06/04/16 06/04/16 23:29 00:00 03:47 Temperature 98.0 F 97.3 F Pulse Rate 70 68 Respiratory 16 16 Rate Blood Pressure 143/64 144/58 (mmHg) O2 Sat by Pulse 97 96 97 Oximetry - Intake and Output Intake and Output: Intake & Output 06/01/16 06/02/16 06/03/16 06/04/16 11:59 11:59 11:59 11:59 Intake Total 2013 1929 Output Total 700 Balance 1314 1930 Weight 191 lb 9.6 oz Intake: IV Fluids 1724 10 ABX - AZITHROMYCIN 250 ABX - CEFTRIAXONE 10 NS 1474 IVPB 60 300 ABX - AZITHROMYCIN 250 ABX - CEFTRIAXONE 50 Oral 230 1620 Output: Urine 700 Other: Estimated Void Small Small # Bowel Movements 0 1 Estimated Stool Amount Small # Voids 1 1 ADLs: Meal Record Start: 06/02/16 16: 41 Freq: DAILY@0900,1400,1800 Status: Active Created 06/02/16 16:41 System (Rec: 06/02/16 16:41 System [id number]) Document 06/03/16 09:13 [id number] (Rec: 06/03/16 09:13 [id number] TELE-C01) Document 06/03/16 12:58 [id number] (Rec: 06/03/16 12:58 [id number] TELE-C07) Document 06/03/16 18:00 [id number] (Rec: 06/03/16 18:36 [id number] TELE-C35) Intake and Output Start: 06/02/16 16: 41 Freq: DAILY@0600,1400,2200 Status: Active Created 06/02/16 16:41 System (Rec: 06/02/16 16:41 System [email or web address]) Document 06/02/16 16:42 [id number] (Rec: 06/02/16 16:42 [id number] TELE-C15) Document 06/03/16 06:00 [id number] (Rec: 06/03/16 07:15 [id number] TELE-C34) Document 06/03/16 12:58 [id number] (Rec: 06/03/16 12:58 [id number] TELE-C07) Document 06/03/16 16:42 [id number] (Rec: 06/03/16 16:42 [id number] [facility]) Document 06/03/16 22:00 [id number] (Rec: 06/03/16 22:24 [id number] TELE-C35) - Physical Exam General: No Cyanosis, No Anemia, No Jaundice, No Lymphadenopathy, No Clubbing Lungs and Chest: Yes: Chest Expansion Full, Chest Expansion Symetrica, Crackles - some scattered basal crackles, Wheezes, Other - prolonged expiratory phase. No: Percussion Note Resonant - dull bases, Vessicular Breath Sounds - decreased at bases, Respiratory Distress, Use of Accessory Muscles Heart Rate and Rhythm: Regular JVP: Not Elevated Additional Cardiovascular: Yes: Normal Heart Sounds, Pedal Edema. No: Heart Murmur Abdominal Exam: Yes: Soft. No: Distention, Abdominal Mass, Hepatomegaly, Abdominal Tenderness - Extremities Cranial Nerves II-XII Intact: Yes Limbs: Normal Power - Neuro Orientation: A/O x3 Speech: Normal Results - Results Lab Results: Laboratory Results - last 24 hr 06/03/16 06/03/16 06/03/16 08:10 11:35 16:45 WBC RBC Hgb Hct MCV MCH MCHC RDW Plt Count MPV Neut % (Auto) Lymph % (Auto) [place] % (Auto) Eos % (Auto) Baso % (Auto) Absolute Neuts (auto) Absolute Lymphs (auto) Absolute Monos (auto) Absolute Eos (auto) Absolute Basos (auto) Absolute Nucleated RBC Nucleated RBC % Sodium Potassium Chloride Carbon Dioxide Anion Gap BUN Creatinine Est GFR ( Amer) Est GFR (Non-Af Amer) BUN/Creatinine Ratio Glucose POC Glucose (mg/dL) 379 H 193 H Lactic Acid 0.9 Calcium Total Bilirubin Direct Bilirubin Indirect Bilirubin AST ALT Alkaline Phosphatase C-Reactive Protein Total Protein Albumin Globulin Albumin/Globulin Ratio 06/04/16 06/04/16 05:41 05:42 WBC 12.5 H RBC 4.77 Hgb 13.7 L Hct 42 MCV 88 MCH 29 MCHC 33 RDW 15 Plt Count 127 L MPV 8 Neut % (Auto) 78.3 Lymph % (Auto) 11.6 L [place] % (Auto) 9.4 H Eos % (Auto) 0.5 Baso % (Auto) 0.2 Absolute Neuts (auto) 9.8 H Absolute Lymphs (auto) 1.5 Absolute Monos (auto) 1.2 H Absolute Eos (auto) 0.1 Absolute Basos (auto) 0 Absolute Nucleated RBC 0 Nucleated RBC % 0 Sodium 137 Potassium 4.0 Chloride 102 Carbon Dioxide 31 Anion Gap 4 BUN 21 Creatinine 0.63 L Est GFR ( Amer) 154.9 Est GFR (Non-Af Amer) 120.5 BUN/Creatinine Ratio 33.3 H Glucose 203 H POC Glucose (mg/dL) Lactic Acid Calcium 9.4 Total Bilirubin 0.50 Direct Bilirubin 0.10 Indirect Bilirubin 0.4 AST 14 ALT 16 Alkaline Phosphatase 65 C-Reactive Protein 130.63 H Total Protein 7.1 Albumin 3.9 Globulin 3.2 Albumin/Globulin Ratio 1.2 Assessment - Problem List Assessment: Patient Problems Basal pneumonia of both lungs (Acute) Bradycardia (Acute) COPD (chronic obstructive pulmonary disease) (Acute) Expiratory wheezing (Acute) Type 2 diabetes mellitus, uncontrolled (Acute) Coronary atherosclerosis (Chronic) Essential hypertension (Chronic) Hx of cervical spine surgery (Chronic) Hypercholesterolemia (Chronic) Left bundle branch block (LBBB) (Chronic) S/P CABG (coronary artery bypass graft) (Chronic) Sleep apnea (Chronic) Spinal stenosis in cervical region (Chronic) Status post transurethral resection of prostate (Chronic 04/22/15) Plan: Basal pneumonia of both lungs (Acute)COPD (chronic obstructive pulmonary disease ) (Acute)Expiratory wheezing (Acute) I reviewed Dr. Lai's consultation note with interest. Clearly this is an exacerbation of COPD as well as a pneumonia. His CRP is significantly raised. He requires continued IV antibacterials/ steroids. Bradycardia (Acute) He has 2 second pauses that are not symptomatic. He takes amlodipine and no beta cy Type 2 diabetes mellitus, uncontrolled (Acute) Running high. I will add back his usual glipizide and leave lantus and coverage the same Coronary atherosclerosis (Chronic) secondary diagnosis Essential hypertension (Chronic) inactive Hx of cervical spine surgery (Chronic)secondary diagnosis Hypercholesterolemia (Chronic)secondary diagnosis Left bundle branch block (LBBB) (Chronic)secondary diagnosis S/P CABG (coronary artery bypass graft) (Chronic) Sleep apnea (Chronic)secondary diagnosis Spinal stenosis in cervical region (Chronic)secondary diagnosis Status post transurethral resection of prostate (Chronic 04/22/15) I discussed the above with the patient directly and his by phone.
[2016-06-04] MEDS: Insulin LISPRO* 1 UNITS UNIT SUBCUT SCH ×6 (10:06→18:24)
[2016-06-04] MEDS: Insulin GLARGINE(*) 1 UNITS UNIT SUBCUT SCH ×2 (10:09→21:30)
[2016-06-04] MEDS: GuaiFENesin DM* 5 ML UDC PO PRN (11:49)
--- NOTE | 2016-06-04 14:21 | PN ---
Progress Note - Progress Note Note: Pulm consult f/u note 06/04/16. Pt seen and examined at bedside. Pt reports slight improvement in breathing. FiO2 requirements are improved. PMHx/PSHx/All/Social Hx/FHx are reviewed and unchanged from admission Active Medications Generic Name Dose Route Start Last Admin Trade Name Freq PRN Reason Stop Dose Admin Acetaminophen 650 mg 06/04/16 05:38 06/04/16 11:50 Tylenol Tab* PO 650 mg Q6H PRN Administration FEVER/PAIN Albuterol/Ipratropium 1 neb 06/02/16 15:18 06/02/16 21:07 Duoneb Neb.Kerry* INH 1 neb Q4H PRN Administration SOB/WHEEZING Amlodipine Besylate 10 mg 06/03/16 18:00 06/03/16 18:39 Norvasc Tab* PO 10 mg QPM JOSE LUIS Administration Aspirin 81 mg 06/03/16 09:00 06/04/16 08:03 Aspirin Ec Low Dose* PO 81 mg DAILY JOSE LUIS Administration Benzonatate 100 mg 06/02/16 15:18 06/02/16 20:14 Tessalon Cap* PO 100 mg BID PRN Administration COUGH Dextrose 12.5 gm 06/02/16 15:16 D50w Syringe 50 Ml* IV PUSH .FOR FS < 60 - SS PRN FS < 60 Dextrose 12.5 gm 06/03/16 08:28 D50w Syringe 50 Ml* IV PUSH .FOR FS < 60 - SS PRN FS < 60 Glipizide 5 mg 06/04/16 17:00 Glucotrol Tab* PO 0800,1700 JOSE LUIS Guaifenesin/Dextromethorphan 10 ml 06/02/16 15:18 06/04/16 11:49 Robitussin Dm* PO 10 ml Q6H PRN Administration COUGH Heparin Sodium (Porcine) 5,000 units 06/02/16 22:00 06/04/16 13:43 Heparin Vial(*) SUBCUT Not Given Q8HR JOSE LUIS Ceftriaxone Sodium 1,000 mg/ 50 mls @ 200 mls/hr 06/02/16 16:30 06/03/16 16: 36 Sodium Chloride IVPB 200 mls/hr Q24H JOSE LUIS Administration Azithromycin 500 mg/ Sodium 250 mls @ 250 mls/hr 06/02/16 17:00 06/03/16 17: 35 Chloride IVPB 250 mls/hr Q24H JOSE LUIS Administration Insulin Glargine 15 units 06/03/16 09:00 06/04/16 10:09 Lantus(*) SUBCUT 15 units Q12H JOSE LUIS Administration Insulin Human Lispro 0 units 06/02/16 16:30 06/04/16 13:17 Humalog* SUBCUT 5 units AC JOSE LUIS Administration Protocol Insulin Human Lispro 0 units 06/04/16 07:30 06/04/16 13:19 Humalog* SUBCUT 4 units AC [facility] Administration Protocol Metformin HCl 500 mg 06/04/16 17:00 Glucophage* PO 0800,1700 JOSE LUIS Prednisone 40 mg 06/02/16 19:00 06/04/16 08:06 Deltasone Tab* PO 40 mg DAILY JOSE LUIS Administration Vital Signs Temp Pulse Resp BP Pulse Ox 98.6 F 75 16 129/51 93 06/04/16 11:51 06/04/16 11:51 06/04/16 11:51 06/04/16 11:51 06/04/16 11:51 Gen: Pt in NAD HEENT: No Scleral Icterus, Mucous Membranes Moist Respiratory: Symmetrical Chest Expansion and Respiratory Effort, scattered wheeze and rhonchi present, improved Cardiovascular: NL Sounds; No Murmurs; No JVD, RRR Abdominal: NL Sounds; No Tenderness; No Distention Extremities: No Clubbing, Cyanosis Skin: No Rash or Ulcers, No Nodules or Sclerosis Neurological: Alert and Oriented x 3, no focal defecits Laboratory Results - last 24 hr 06/02/16 06/02/16 06/02/16 13:00 19:51 19:51 WBC RBC Hgb Hct MCV MCH MCHC RDW Plt Count MPV Neut % (Auto) Lymph % (Auto) [place] % (Auto) Eos % (Auto) Baso % (Auto) Absolute Neuts (auto) Absolute Lymphs (auto) Absolute Monos (auto) Absolute Eos (auto) Absolute Basos (auto) Absolute Nucleated RBC Nucleated RBC % Sodium Potassium Chloride Carbon Dioxide Anion Gap BUN Creatinine Est GFR ( Amer) Est GFR (Non-Af Amer) BUN/Creatinine Ratio Glucose POC Glucose (mg/dL) Hemoglobin A1c 8.4 H Lactic Acid 2.2 H* Calcium Troponin I 0.02 06/03/16 06/03/16 06/03/16 04:14 04:14 07:54 WBC 13.8 H RBC 4.40 Hgb 12.8 L Hct 39 L MCV 89 MCH 29 MCHC 33 RDW 15 Plt Count 109 L MPV 9 Neut % (Auto) 91.7 H Lymph % (Auto) 3.5 L [place] % (Auto) 4.0 Eos % (Auto) 0 Baso % (Auto) 0.8 Absolute Neuts (auto) 12.7 H Absolute Lymphs (auto) 0.5 L Absolute Monos (auto) 0.6 Absolute Eos (auto) 0 Absolute Basos (auto) 0.1 Absolute Nucleated RBC 0 Nucleated RBC % 0 Sodium 134 Potassium 4.4 Chloride 103 Carbon Dioxide 30 Anion Gap 1 L BUN 14 Creatinine 0.70 Est GFR ( Amer) 137.2 Est GFR (Non-Af Amer) 106.7 BUN/Creatinine Ratio 20.0 Glucose 304 H POC Glucose (mg/dL) 309 H Hemoglobin A1c Lactic Acid Calcium 8.9 Troponin I 06/03/16 06/03/16 06/03/16 08:10 11:35 16:45 WBC RBC Hgb Hct MCV MCH MCHC RDW Plt Count MPV Neut % (Auto) Lymph % (Auto) [place] % (Auto) Eos % (Auto) Baso % (Auto) Absolute Neuts (auto) Absolute Lymphs (auto) Absolute Monos (auto) Absolute Eos (auto) Absolute Basos (auto) Absolute Nucleated RBC Nucleated RBC % Sodium Potassium Chloride Carbon Dioxide Anion Gap BUN Creatinine Est GFR ( Amer) Est GFR (Non-Af Amer) BUN/Creatinine Ratio Glucose POC Glucose (mg/dL) 379 H 193 H Hemoglobin A1c Lactic Acid 0.[address] I CT chest was personally reviewed by me: B/l lower lobe dense consolidations R>L , no endobronchial lesions I/R: 85 y o m with h/o COPD, 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 Pt presented with non-resolving URI sx to clinic yesterday. Pt had significant wheeze, crackles on exam with evidence of hypoxia and was sent to ED for further evaluation. Pt had CT chest in ED which showed b/ l PNA. Pt also had signs of sepsis which are improving.He is on abx for coverage of CAP. Acute hypoxic resp failure secondary to PNA, improving CAP Acute COPD exacerbation, improving c/w abx, day#3/7 c/w O2 supplementation Sputum cx negative to date No further episodes of hemoptysis, had blood stained sputum c/w bronchodilators, prednisone Sugars being closely monitored
[2016-06-04] MEDS: cefTRIAXone VIAL(*) 1,000 MG in NS 0.9% 50 ML* 50 ML IVPB SCH (16:55)
[2016-06-04] MEDS ORDERED: NS 0.9% 250 ML* 250 ML ONE (17:41)
[2016-06-04] MEDS: metFORMIN* 500 MG TAB PO SCH (18:11)
[2016-06-04] MEDS: glipiZIDE TAB* 5 MG PO SCH (18:11)
[2016-06-04] MEDS: amLODIPine TAB* 5 MG PO SCH (18:12)
[2016-06-04] MEDS: Azithromycin IV(*) 500 MG in NS 0.9% 250 ML* 250 ML IVPB SCH (18:23)
[2016-06-05 05:25] LABS: BUN/Creatinine Ratio 22.4 (8-20); C Reactive Protein 65.02 mg/L (< 5.00); Calcium 9.5 mg/dL (8.6-10.3); EGFR African American 170.4 (>60); EGFR Non-African American 132.5 (>60); Potassium 3.5 mmol/L (3.5-5.0)
[2016-06-05] MEDS: Heparin VIAL(*) 5000 UNITS/ML VIAL (FIVE THOUSAND) SUBCUT SCH (05:33)
[2016-06-05] MEDS: GuaiFENesin DM* 5 ML UDC PO PRN (07:16)
[2016-06-05] MEDS: Insulin LISPRO* 1 UNITS UNIT SUBCUT SCH ×2 (07:22→08:26)
[2016-06-05 07:29] VITALS: BP 139/65
--- NOTE | 2016-06-05 07:59 | PN ---
Subjective - Subjective Reason for Note: Discharge Note History: He is feeling much better. He continues to have O2 by UT. He is not having side effects from the antibacterials. His glucose levels have become tight. He has a continued productive cough - no fever, sweats or chills. Active Problems: Active Problems Basal pneumonia of both lungs (Acute) J18.9 Bradycardia (Acute) R00.1 COPD (chronic obstructive pulmonary disease) (Acute) J44.9 Expiratory wheezing (Acute) R06.2 Type 2 diabetes mellitus, uncontrolled (Acute) E11.65 Coronary atherosclerosis (Chronic) I25.10 Essential hypertension (Chronic) I10 Hx of cervical spine surgery (Chronic) Z98.890 Hypercholesterolemia (Chronic) E78.00 Left bundle branch block (LBBB) (Chronic) I44.7 S/P CABG (coronary artery bypass graft) (Chronic) Z95.1 Sleep apnea (Chronic) G47.30 Spinal stenosis in cervical region (Chronic) M48.02 Status post transurethral resection of prostate (Chronic 04/22/15) Z90.79 Current Medications: Current Medications Acetaminophen (Tylenol Tab*) 650 mg PO Q6H PRN PRN Reason: FEVER/PAIN Last Admin: 06/04/16 11:50 Dose: 650 mg Albuterol/Ipratropium (Duoneb Neb.Kerry*) 1 neb INH Q4H PRN PRN Reason: SOB/WHEEZING Last Admin: 06/02/16 21:07 Dose: 1 neb Amlodipine Besylate (Norvasc Tab*) 10 mg PO QPM [facility] Last Admin: 06/04/16 18:12 Dose: 10 mg Aspirin (Aspirin Ec Low Dose*) 81 mg PO DAILY [facility] Last Admin: 06/04/16 08:03 Dose: 81 mg Benzonatate (Tessalon Cap*) 100 mg PO BID PRN PRN Reason: COUGH Last Admin: 06/02/16 20:14 Dose: 100 mg Dextrose (D50w Syringe 50 Ml*) 12.5 gm IV PUSH .FOR FS < 60 - SS PRN PRN Reason: FS < 60 Dextrose (D50w Syringe 50 Ml*) 12.5 gm IV PUSH .FOR FS < 60 - SS PRN PRN Reason: FS < 60 Glipizide (Glucotrol Tab*) 5 mg PO 0800,1700 [facility] Last Admin: 06/04/16 18:11 Dose: 5 mg Guaifenesin/Dextromethorphan (Robitussin Dm*) 10 ml PO Q6H PRN PRN Reason: COUGH Last Admin: 06/05/16 07:16 Dose: 10 ml Heparin Sodium (Porcine) (Heparin Vial(*)) 5,000 units SUBCUT Q8HR [facility] Last Admin: 06/05/16 05:33 Dose: Not Given Ceftriaxone Sodium 1,000 mg/ (Sodium Chloride) 50 mls @ 200 mls/hr IVPB Q24H JOSE LUIS Last Admin: 06/04/16 16:55 Dose: 200 mls/hr Azithromycin 500 mg/ Sodium (Chloride) 250 mls @ 250 mls/hr IVPB Q24H [facility] Last Admin: 06/04/16 18:23 Dose: 250 mls/hr Insulin Human Lispro (Humalog*) 0 units SUBCUT AC JOSE LUIS PRN Reason: Protocol Last Admin: 06/05/16 07:22 Dose: Not Given Insulin Human Lispro (Humalog*) 0 units SUBCUT AC [facility] PRN Reason: Protocol Last Admin: 06/04/16 18:18 Dose: Not Given Metformin HCl (Glucophage*) 500 mg PO 0800,1700 [facility] Last Admin: 06/04/16 18:11 Dose: 500 mg Prednisone (Deltasone Tab*) 40 mg PO DAILY [facility] Last Admin: 06/04/16 08:06 Dose: 40 mg Home Medications: Home Medications Medication Instructions Recorded Confirmed Type Atenolol 50 mg PO QPM 07/16/12 06/02/16 History Glipizide 5 mg PO QA 07/16/12 06/02/16 History Hydrochlorothiazide TAB* 12.5 mg PO QAM 07/16/12 06/02/16 History Insulin Glargine [Lantus] 20 units SUBCUT QA 07/16/12 06/02/16 History Metformin HCl 1,000 mg PO BID 07/16/12 06/02/16 History amLODIPine TAB* [Norvasc TAB*] 10 mg PO QPM 07/16/12 06/02/16 History Glipizide 10 mg PO QPM 03/12/15 06/02/16 History Pravastatin Sodium [Pravachol] 20 mg PO QPM 03/12/15 06/02/16 History Symbicort 80/4.5 (NF) 2 inh INH BID 03/19/15 06/02/16 History Aspirin EC Low Dose* [Ecotrin EC 81 mg PO DAILY 06/02/16 06/02/16 History Low Dose*] Allergies: Allergies Allergy/AdvReac Type Severity Reaction Status Date / Time Protamine Allergy Severe Anaphylatic Verified 03/19/15 07:12 [From Protamine Sulfate Shock Lyophylized] Objective - Vital Signs Vital Signs: Vital Signs 06/04/16 06/04/16 06/04/16 07:58 09:15 11:51 Temperature 98.6 F Pulse Rate 76 75 Respiratory 18 16 16 Rate Blood Pressure 129/51 (mmHg) O2 Sat by Pulse 95 93 Oximetry 06/04/16 06/04/16 06/04/16 17:06 17:41 20:00 Temperature 98.6 F Pulse Rate 70 70 Respiratory 16 16 Rate Blood Pressure 152/64 (mmHg) O2 Sat by Pulse 96 95 95 Oximetry 06/04/16 06/05/16 06/05/16 23:25 00:00 07:15 Temperature 97.9 F 98.2 F Pulse Rate 69 66 Respiratory 18 20 Rate Blood Pressure 144/73 139/65 (mmHg) O2 Sat by Pulse 96 96 95 Oximetry 06/05/16 07:39 Temperature Pulse Rate Respiratory 22 Rate Blood Pressure (mmHg) O2 Sat by Pulse Oximetry - Intake and Output Intake and Output: Intake & Output 06/02/16 06/03/16 06/04/16 06/05/16 11:59 11:59 11:59 11:59 Intake Total 2013 2150 1530 Output Total 700 Balance 1314 2150 1530 Weight 191 lb 9.6 oz Intake: IV Fluids 1724 10 30 ABX - AZITHROMYCIN 250 ABX - CEFTRIAXONE 10 NS 1474 30 IVPB 60 300 250 ABX - AZITHROMYCIN 250 250 ABX - CEFTRIAXONE 50 Oral 230 1840 1250 Output: Urine 700 Other: Estimated Void Small Small Medium # Bowel Movements 0 1 0 Estimated Stool Amount Small # Voids 1 1 0 ADLs: Meal Record Start: 06/02/16 16: 41 Freq: DAILY@0900,1400,1800 Status: Active Created 06/02/16 16:41 System (Rec: 06/02/16 16:41 System TELE-C15) Document 06/03/16 09:13 [id number] (Rec: 06/03/16 09:13 [id number] TELE-C01) Document 06/03/16 12:58 [id number] (Rec: 06/03/16 12:58 [id number] TELE-C07) Document 06/03/16 18:00 [id number] (Rec: 06/03/16 18:36 [id number] TELE-C35) Document 06/04/16 09:00 [id number] (Rec: 06/04/16 10:59 [id number] TELE-C10) Document 06/04/16 18:00 [id number] (Rec: 06/04/16 19:16 [id number] TELE-C10) Intake and Output Start: 06/02/16 16: 41 Freq: DAILY@0600,1400,2200 Status: Active Created 06/02/16 16:41 System (Rec: 06/02/16 16:41 System TELE-C15) Document 06/02/16 16:42 [id number] (Rec: 06/02/16 16:42 [id number] TELE-C15) Document 06/03/16 06:00 [id number] (Rec: 06/03/16 07:15 [id number] TELE-C34) Document 06/03/16 12:58 [id number] (Rec: 06/03/16 12:58 [id number] TELE-C07) Document 06/03/16 16:42 [id number] (Rec: 06/03/16 16:42 [id number] MED-L08) Document 06/03/16 22:00 [id number] (Rec: 06/03/16 22:24 [id number] TELE-C35) Document 06/04/16 13:39 [id number] (Rec: 06/04/16 13:40 [id number] TELE-C13) Document 06/04/16 22:00 [id number] (Rec: 06/04/16 23:07 [id number] TELE-C34) Document 06/05/16 06:00 [id number] (Rec: 06/05/16 06:05 [id number] TELE-C34) - Physical Exam General: No Cyanosis, No Anemia, No Jaundice, No Clubbing Skin: Normal: Rash Lungs and Chest: Yes: Chest Expansion Full, Chest Expansion Symetrica, Crackles - bibasilar, Wheezes - improved. No: Percussion Note Resonant - dull right base , Vessicular Breath Sounds, Respiratory Distress, Use of Accessory Muscles Heart Rate and Rhythm: Bradycardia JVP: Not Elevated Additional Cardiovascular: Yes: Normal Heart Sounds, Pedal Edema Abdominal Exam: Yes: Soft, Bowel Sounds Present. No: Distention, Hepatomegaly, Abdominal Tenderness Results - Results Lab Results: Laboratory Results - last 24 hr 06/04/16 06/04/16 06/04/16 08:01 11:56 15:59 Sodium Potassium Chloride Carbon Dioxide Anion Gap BUN Creatinine Est GFR ( Amer) Est GFR (Non-Af Amer) BUN/Creatinine Ratio Glucose POC Glucose (mg/dL) 181 H 221 H 283 H Calcium C-Reactive Protein 06/05/16 06/05/16 04:56 07:21 Sodium 138 Potassium 3.5 Chloride 102 Carbon Dioxide 31 Anion Gap 5 BUN 13 Creatinine 0.58 L Est GFR ( Amer) 170.4 Est GFR (Non-Af Amer) 132.5 BUN/Creatinine Ratio 22.4 H Glucose 82 POC Glucose (mg/dL) 80 Calcium 9.5 C-Reactive Protein 65.02 H Assessment - Problem List Assessment: Patient Problems Basal pneumonia of both lungs (Acute) Bradycardia (Acute) COPD (chronic obstructive pulmonary disease) (Acute) Expiratory wheezing (Acute) Type 2 diabetes mellitus, uncontrolled (Acute) Coronary atherosclerosis (Chronic) Essential hypertension (Chronic) Hx of cervical spine surgery (Chronic) Hypercholesterolemia (Chronic) Left bundle branch block (LBBB) (Chronic) S/P CABG (coronary artery bypass graft) (Chronic) Sleep apnea (Chronic) Spinal stenosis in cervical region (Chronic) Status post transurethral resection of prostate (Chronic 04/22/15) Plan: Basal pneumonia of both lungs (Acute) He is recovering nicely. I will switch him to oral augmentin 1 gram tid and maintain the azithromycin. I will discharge him home if his O2 sats are reasonable off O2, and otherwise if we can arrange home O2 Bradycardia (Acute) ongoing COPD (chronic obstructive pulmonary disease) (Acute) Exacerbated - I will taper his prednisone to 20 mg qdaily Expiratory wheezing (Acute) improved Type 2 diabetes mellitus, uncontrolled (Acute) I have stopped his lantus insulin and lispro insulin as his glucose this morning was 80 mg/dl on glipizide and metformin Coronary atherosclerosis (Chronic) Essential hypertension (Chronic) stable Hx of cervical spine surgery (Chronic) Hypercholesterolemia (Chronic) secondary diagnosis Left bundle branch block (LBBB) (Chronic) S/P CABG (coronary artery bypass graft) (Chronic) Sleep apnea (Chronic) continue BIPAP Spinal stenosis in cervical region (Chronic) Status post transurethral resection of prostate (Chronic 04/22/15) I discussed the above with the patient and he agrees with the management plan.
[2016-06-05] MEDS ORDERED: Azithromycin TAB* 250 MG PO ONE (08:05)
[2016-06-05] MEDS: glipiZIDE TAB* 5 MG PO SCH (08:34)
[2016-06-05] MEDS: metFORMIN* 500 MG TAB PO SCH (08:34)
[2016-06-05] MEDS: Aspirin EC Low Dose* 81 MG TAB.EC PO SCH (08:34)
[2016-06-05] MEDS ORDERED: predniSONE TAB* 20 MG PO SCH (09:00)
[2016-06-05] MEDS ORDERED: Amoxicillin/Clavulanate TAB* 500 MG PO SCH (09:00)
--- NOTE | 2016-06-05 23:19 | DS ---
DISCHARGE SUMMARY: DATE OF ADMISSION: 06/02/16 DATE OF DISCHARGE: 06/05/16 DISCHARGE DIAGNOSES: 1. Bibasilar pneumonia. 2. Exacerbation of chronic obstructive pulmonary disease. 3. Exacerbation of type 2 diabetes, poor control. 4. Respiratory failure at presentation. SECONDARY DIAGNOSES: 1. Bradycardia. 2. Left bundle-branch block. 3. Coronary artery disease, post CABG. 4. Hypertension. 5. History of cervical spine surgery. 6. Hypercholesterolemia. 7. Sleep apnea requiring BiPAP. 8. Spinal stenosis. HISTORY: Vladimir Mohan is an 85-year-old white male whose presentation is provided by Elda Stacy NP in her admitting history and physical, which is part of the electronic medical record. In short, he had a URI for 2 weeks started with a sore throat, runny nose, cough without fever. This was treated conservatively. He thought he was getting better; however, he developed worsening cough the night before admission and shortness of breath lying flat. He also had some blood in his sputum and was feeling logy. He was coughing so much when he woke up. He could not be comfortable, some chills. He went to Dr. Lai's office and she sent him to the emergency room and he was found to have mild fever, white count of 17.1, lactic acid 3.1. Initially was admitted for community-required pneumonia, started on ceftriaxone and azithromycin parenterally, oxygen. He was noted to have a sinus bradycardia of a left bundle -branch block and was placed on telemetry. His diabetes was uncontrolled and hence he was placed on insulin his usual and oral agents. INVESTIGATIONS: Chest x-ray at presentation, low lung volumes and basilar atelectasis. CT scan of the chest, bibasilar pneumonia. EKG showed left bundle-branch block rate 46, OR interval 241, QTc 422, QRS axis 32, first degree heart block. He was followed during his hospitalization by Dr. Lai in consultation, who endorsed the management plan. On 06/04/16, his C-reactive protein was 130.63. On 06/05/16 at 65.02. His white count at presentation was 17.1 and it came down on 06/04/16 to 12.5 despite steroid treatment, which would normally cause a leukocytosis. He was insulin resistant at first but by the day of discharge, his glucose was 80 mg/dL back on his oral glipizide and metformin. On the day of discharge, he is feeling much better. He continues to have a productive cough. He is able to walk around the medical floor several times without significant shortness of breath. He continues to use nasal cannula for oxygenation. It is not clear to me at this point that if this is necessary. He has no adverse effects from the antibiotics in particular and no skin rash and no diarrhea. He has had no symptoms of his bradycardia. PHYSICAL EXAMINATION ON THE DAY OF DISCHARGE: Vital Signs: Temperature 98.2, pulse 66, respirations 20, oxygen saturation 95% on nasal cannula, blood pressure 139/65. General: He has no cyanosis, anemia, jaundice, clubbing, or lymphadenopathy. Cardiovascular System: His pulse was regular. Normal character and volume. Venous pressure was not elevated. Heart sounds were normal. No added sounds or murmurs. He has a trace pedal edema. No carotid bruits. Respiratory: Chest expansion was symmetrical. Percussion note was dull at the right base. He has some bibasilar crackles, improved expiratory wheezes. Abdomen: No distension, masses, tenderness, or organomegaly. Nervous System: Alert and oriented. Cranial nerves II through XII intact. Speech is normal. Arms and legs: Full power and normal tone. ASSESSMENT AND PLAN: 1. Bibasilar pneumonia. I have transferred him to Augmentin 1000 mg t.i.d. for further 5 days and he will complete an oral course of azithromycin. We will check whether he needs home oxygen and arrange it if needed. 2. Exacerbation chronic obstructive pulmonary disease. He will taper his prednisone over the next week or so. He will use Symbicort as MDI. He will call us if he becomes more short of breath. I will hold his atenolol because of the potential for bronchospasm. 3. Type 2 diabetes mellitus. He is back on oral agents. I do not think he needs insulin. 4. Sleep apnea. He will use BiPAP at night. 5. Coronary artery disease. This is not exacerbated. 6. Heart conduction problem. He has left bundle-branch block with bradycardia with occasional missed beats as long as 2 seconds. He has no syncopal symptoms. I will evaluate this as an outpatient and I have warned the patient and his about this. 7. Hypertension. This is stable. 8. I have talked about the patient and his about this plan and they agree with the management plan. DISCHARGE MEDICATIONS: 1. Augmentin 1000 mg t.i.d. 2. Azithromycin 250 mg daily for a total of 3 days. 3. Prednisone 20 mg a day for 3 days, 10 mg a day for 3 days, 5 mg a day for 3 days and then stop. 4. Hydrochlorothiazide 12.5 mg daily. 5. Amlodipine 10 mg daily. 6. He will continue metformin 1000 mg twice daily. 7. Glipizide 5 mg q.a.m. 8. Glargine insulin 20 mg q.a.m. 9. Pravastatin 20 mg q.h.s. 10. I have stopped his atenolol. 11. Glipizide 10 mg q.h.s. He will follow with me in early next week with some blood work. CC: Dr. Barbara Lai* [id number]/[facility] #: [id number] MTDD
== END 2016-06-05 10:44 | disposition short-term general hospital (02) | DRG 193 ==
LOC: ED 12:29 → MEDTELE 16:40
PROVIDERS: ADMIT Internal Medicine; ATTEND Internal Medicine
DX: J18.9 Pneumonia, unspecified organism (principal); J96.01 Acute respiratory failure with hypoxia; J44.1 Chronic obstructive pulmonary disease with (acute) exacerbation; I25.810 Atherosclerosis of coronary artery bypass graft(s) without angina pectoris; E11.65 Type 2 diabetes mellitus with hyperglycemia; I11.9 Hypertensive heart disease without heart failure; E78.00 Pure hypercholesterolemia, unspecified; I44.7 Left bundle-branch block, unspecified; G47.33 Obstructive sleep apnea (adult) (pediatric); M48.00 Spinal stenosis, site unspecified; Z95.1 Presence of aortocoronary bypass graft; Z79.82 Long term (current) use of aspirin; Z79.4 Long term (current) use of insulin; Z79.899 Other long term (current) drug therapy; Z88.2 Allergy status to sulfonamides; Z87.891 Personal history of nicotine dependence
CPT/HCPCS: 36415; 71010; 71250; 80048; 80076; 83036; 83605; 83880; 84484; 85025; 86140; 87040; 87070; 87205; 87502; 87899; 93005; 94640; 94760; A9270-GY; J0456; J0696; J1644; J7512